=== PATIENT | female | born 1940 | race Caucasian/White ===

== ENCOUNTER 2019-01-03 08:04 | Emergency (ER) | payer OTHER ==
[~2019-01-03] VITALS: Ht 165.1 cm; Wt 59.0 kg
[~2019-01-03 08:04] MED LIST: ACTOS15 MG PO; B-121000 MC2 PO; BONIVA150 MG PO; CARDIZEM CD120 MG PO; CORDARONE200 MG PO; COREG6.25 MG PO; GLUCOPHAGE500 MG PO; GLYBURIDE 5 MG T5 M1 PO; INDAPAMIDE1.25 MG PO; IRBESARTAN300 MG PO; IRON SUPPLEMEN325 MG PO; JANUVIA25 MG PO; LESCOL XL80 MG PO; NORVASC10 MG PO; PLAVIX 75 MG TA75 M1 PO; SPIRONOLACTONE25 MG PO; VITAMIN D5000 UNIT PO
[2019-01-03] MEDS ORDERED: GLYBURIDE 5 MG T5 M1 PO (08:07)
[2019-01-03] MEDS ORDERED: JANUVIA100 MG PO (08:08)
[2019-01-03] MEDS ORDERED: BENTYL 20 MG TA20 M1 PO (08:09)
[2019-01-03] MEDS ORDERED: IRON325 PO (08:10)
[2019-01-03] MEDS ORDERED: TYLENOL EXTRA500 MG PO (08:11)
[2019-01-03] MEDS ORDERED: TRIAMCINOLONE A80 G2 TOP (08:11)
[2019-01-03] MEDS ORDERED: SPIRONOLACTONE25 M1 PO (08:12)
[2019-01-03] MEDS ORDERED: INDAPAMIDE2.5 MG PO (08:12)
[2019-01-03] MEDS ORDERED: [UNRECOGNIZED DRUG - OTHER] PO (08:14)
[2019-01-03] MEDS ORDERED: VITAMIN B-12500 MCG PO (08:15)
[2019-01-03 08:50] LABS: ABSOLUTE EOSINOPHILS 0.2 thou/uL (0.0-0.7); ABSOLUTE LYMPHOCYTES 1.7 thou/uL (0.8-5.3); ABSOLUTE MONOCYTES 0.6 thou/uL (0.0-1.2); BASOPHILS 0.4 %; EOSINOPHILS 1.7 %; HEMATOCRIT 37.4 % (37.0-47.0); HEMOGLOBIN 12.8 gm/dL (12.0-15.0); LYMPHOCYTES 16.4 %; MCH 28.5 pg (26.0-34.0); MCHC 34.3 g/dL (28.0-37.0); MCV 82.9 fL (80.0-100.0); MONOCYTES 5.4 %; NUCLEATED RBCS 0 /100WBC; PLATELET COUNT* 236 thou/uL (150-400); POLYS 76.1 %; RBC 4.51 mil/uL (4.20-5.00); RDW-CV 15.1 % (10.5-14.5); WBC 10.6 thou/uL (4.0-11.0)
[2019-01-03 08:58] LABS: CALCIUM 9.3 mg/dL (8.5-10.1); CREATININE 1.3 mg/dL (0.6-1.3); POTASSIUM 4.4 mmol/L (3.5-5.1)
[2019-01-03 09:02] LABS: ALBUMIN 3.8 g/dL (3.4-5.0); TOTAL BILIRUBIN 0.3 mg/dL (<0.1-1.0); TOTAL PROTEIN 7.9 g/dL (6.4-8.2)
[2019-01-03 09:46] VITALS: BP 149/63
== END 2019-01-03 09:47 | disposition home or self-care (01) ==
LOC: M.ERS 08:04
PROVIDERS: Personal Emergency Response Attendant
DX: E11.649 Type 2 diabetes mellitus with hypoglycemia without coma (principal); Z90.710 Acquired absence of both cervix and uterus; Z86.73 Personal history of transient ischemic attack (TIA), and cerebral infarction without residual deficits; Z85.828 Personal history of other malignant neoplasm of skin

== ENCOUNTER 2019-05-18 11:50 | Inpatient (IN) | payer OTHER ==
[~2019-05-18] VITALS: Ht 167.6 cm; Wt 60.8 kg
[~2019-05-18 11:50] MED LIST changes: +BENTYL 20 MG TA20 M1 PO; +INDAPAMIDE2.5 MG PO; +JANUVIA100 MG PO; +SPIRONOLACTONE25 M1 PO; +TRIAMCINOLONE A80 G2 TOP; +[UNRECOGNIZED DRUG - OTHER] PO
[2019-05-18 11:51] VITALS: BP 158/41
[2019-05-18 12:12] LABS: ABSOLUTE BASOPHILS 0.1 thou/uL (0.0-0.2); ABSOLUTE EOSINOPHILS 0.2 thou/uL (0.0-0.7); ABSOLUTE LYMPHOCYTES 1.7 thou/uL (0.8-5.3); ABSOLUTE MONOCYTES 0.8 thou/uL (0.0-1.2); ABSOLUTE NEUTROPHILS 13.1 thou/uL (1.6-8.1); BASOPHILS 0.4 %; EOSINOPHILS 1.1 %; HEMATOCRIT 36.4 % (37.0-47.0); HEMOGLOBIN 12.4 gm/dL (12.0-15.0); LYMPHOCYTES 10.8 %; MCH 27.7 pg (26.0-34.0); MCHC 34.1 g/dL (28.0-37.0); MCV 81.2 fL (80.0-100.0); MONOCYTES 4.9 %; MPV 8.2 fl. (7.2-11.1); NUCLEATED RBCS 0 /100WBC; PLATELET COUNT* 243 thou/uL (150-400); POLYS 82.8 %; RBC 4.49 mil/uL (4.20-5.00); WBC 15.8 thou/uL (4.0-11.0)
[2019-05-18 12:22] LABS: PROTIME 10.7 Seconds (9.20-11.50)
[2019-05-18 12:26] LABS: CALCIUM 9.3 mg/dL (8.5-10.1); CREATININE 1.5 mg/dL (0.6-1.3); POTASSIUM 4.1 mmol/L (3.5-5.1)
[2019-05-18 12:31] LABS: ALBUMIN 3.5 g/dL (3.4-5.0); TOTAL BILIRUBIN 0.5 mg/dL (<0.1-1.0); TOTAL PROTEIN 7.8 g/dL (6.4-8.2)
--- NOTE | 2019-05-18 15:19 | EKG ---
[place] [address] ELECTROCARDIOGRAM REPORT Name: ODELLIRMA Room: [place] [address] ADM IN .R.#: [id number] Admission: 05/18/19 Attend Phys: Sherice Sheridan Discharge: Date of : 36 Report #: [id number] THIS REPORT FOR: //name// [facility] ED Test Date: 2019-05-18 Test Time: 12:26:20 Pat Name: IRMA ODELL Department: Room: [facility] Gender: F Gold Assayer: VICTORIANO : 1940 Requested By: Matt Bhagat Order Number: [id number] MD: Jese Bautista Measurements Intervals [place] Rate: 72 P: 32 CA: 159 QRS: -2 QRSD: 105 T: 28 QT: 424 QTc: 465 Interpretive Statements Sinus rhythm Low voltage, precordial leads artifact noted Compared to ECG 12/19/2014 16:00:25 Low QRS voltage now present ST (T wave) deviation now present Electronically Signed On 05-18-2019 15:18:59 CDT by Jese Bautista [email or web address] <ELECTRONICALLY SIGNED> By: Jese Bautista MD, FACC 05/18/19 1518 1226 1226 Jese Bautista MD, FAC /EPI
[2019-05-18 15:21] LABS: URINE BILIRUBIN NEGATIVE (Negative); URINE BLOOD TRACE (Negative); URINE CLARITY CLEAR; URINE COLOR YELLOW; URINE GLUCOSE-RANDOM 3+ (Negative); URINE KETONES NEGATIVE (Negative); URINE NITRITE-REFLEX NEGATIVE (Negative); URINE PROTEIN TRACE (Negative); URINE UROBILINOGEN 0.2 E.U./dl (0.2-1.0)
[2019-05-18 15:22] LABS: URINE LEUKOCYTES-REFLEX 2+ (Negative)
[2019-05-18 15:53] LABS: HYALINE CASTS >10 Many /LPF (None Seen); MUCUS None Seen strn/LPF (None Seen); SQUAMOUS >10 Many /LPF (0-3)
[2019-05-18 15:54] LABS: BACTERIA-REFLEX 1-9 Few /HPF (None Seen); CRYSTALS None Seen /LPF (None Seen); URINE RBC 0-2 Rare /HPF (0-2); URINE WBC-REFLEX >25 Many /HPF (0-5)
[2019-05-18 18:38] VITALS: BP 129/52
[2019-05-18 18:53] VITALS: BP 157/91
[2019-05-18 20:04] VITALS: BP 147/54
[2019-05-19] VITALS (7 sets, daily range): BP systolic 143–163; BP diastolic 55–71
--- NOTE | 2019-05-19 05:11 | NUR ---
PT IS ABLE TO COMMUNICATE HER NEEDS TO STAFF EFFECTIVELY. SHE HAS DENIED THE NEED FOR PAIN MEDICATION UP TO THIS TIME. NEUROLOGY AND REHAB CONSULTED. PT REPORTS HAVING A RECENT FALL WHILE AT HOME; BED ALARM ON.
[2019-05-19 06:08] LABS: ALKALINE PHOSPHATASE 89 U/L (46-116); ANION GAP 11 mmol/L (7-16); BUN 17 mg/dL (7-18); CALCIUM 8.6 mg/dL (8.5-10.1); CHLORIDE 110 mmol/L (98-107); CHOLESTEROL 130 mg/dL (<200); CO2 23 mmol/L (21-32); CREATININE 1.1 mg/dL (0.6-1.3); GLUCOSE 153 mg/dL (70-99); HDL CHOLESTEROL 41 mg/dL (>40); LDL CHOLESTEROL 77 mg/dL (<100); POTASSIUM 3.7 mmol/L (3.5-5.1); SERUM ASSESSMENT Clear; SGOT 13 U/L (15-37); SGPT 18 U/L (30-65); SODIUM 144 mmol/L (136-145); TC:HDL 3.2 Ratio (Not establshd); TOTAL BILIRUBIN 0.3 mg/dL (<0.1-1.0); TOTAL PROTEIN 6.5 g/dL (6.4-8.2); TRIGLYCERIDE 64 mg/dL (<150); VLDL 13 mg/dL (<40)
--- NOTE | 2019-05-19 07:15 | NUR ---
CHANGE OF SHIFT, BEDSIDE REPORT GIVEN PATIENT SEEN AT BEDSIDE, IN BED ASLEEP ASSUMED PATIENT CARE
--- NOTE | 2019-05-19 14:53 | 2DMMODE ---
[place] [address] 2 D/M-MODE ECHOCARDIOGRAM Name: IRMA ODELL Tory Room: [address] IN [facility]#: [id number] Admission: 05/18/19 Attend Phys: Sherice gomez Sa Discharge: Date of : 36 Date of Service: 05/19/19 1453 Report #: [id number] THIS REPORT FOR: //name// APPROVED REPORT Study performed: 05/19/2019 09:38:25 EXAM: Comprehensive 2D, Doppler, and color-flow Echocardiogram Patient Location: In-Patient Room #: [facility] Status: routine BSA: 1.68 HR: 79 bpm BP: 157/56 mmHg Rhythm: NSR Other Information Study Quality: Good Indications CVA/TIA Echo Enhancing Agent Indication: Rule out Shunt Agent(s) / Amount(s) Used: Agitated Saline 10 cc 2D Dimensions IVSd: 10.66 (7-11mm) LVOT Diam: 18.26 (18-24mm) LVDd: 35.36 mm PWd: 7.85 (7-11mm) Ascending Ao: 27.83 (22-36mm) LVDs: 14.84 (25-40mm) Aortic Root: 26.83 mm Volumes Left Atrial Volume (Systole) LA ESV Index: 27.60 mL/m2 Aortic Valve AoV Peak Wong.: 1.53 m/s AO Peak Gr.: 9.41 mmHg LVOT Max P.90 mmHg AO Mean Gr.: 5.48 mmHg LVOT Mean P.85 mmHg LVOT Max V: 0.99 m/s AO V2 VTI: 35.88 cm LVOT Mean V: 0.62 m/s DANIEL (VTI): 1.80 cm2 LVOT V1 VTI: 24.71 [place] [address] 2 D/M-MODE ECHOCARDIOGRAM Name: IRMA ODELL Room: [address] M.R.#: [id number] Admission: 05/18/19 Attend Phys: Sherice gomez Sa Discharge: Date of : 36 Date of Service: 05/19/19 1453 Report #: [id number] Mitral Valve E/A Ratio: 0.82 MV Decel. Time: 280.25 ms MV E Max Wong.: 1.11 m/s MV PHT: 81.27 ms MVA (PHT): 2.71 cm2 TDI E/Lateral E': 15.86 E/Medial E': 7.93 Medial E' Wong.: 0.14 m/s Lateral E' Wong.: 0.07 m/s Pulmonary Valve PV Peak Wong.: 0.94 m/s PV Peak Gr.: 3.57 mmHg Left Ventricle The left ventricle is normal size. There is normal LV segmental wall motion. There is normal left ventricular wall thickness. Left ventricular systolic function is normal. The left ventricular ejection fraction is within the normal range. LVEF is 65-70%. Grade I - abnormal relaxation pattern. Right Ventricle The right ventricle is normal size. The right ventricular systolic function is normal. Atria The left atrium size is normal. Interatrial septum is intact without evidence of ASD or PFO. The right atrium size is normal. Aortic Valve Mild aortic valve sclerosis. No aortic regurgitation is present. There is no aortic valvular stenosis. Mitral Valve The mitral valve is normal in structure. Trace mitral regurgitation. No evidence of mitral valve stenosis. Tricuspid Valve The tricuspid valve is normal in structure. Trace tricuspid regurgitation. Pulmonic Valve The pulmonary valve is normal in structure. There is no [place]mon[place] [address] 2 D/M-MODE ECHOCARDIOGRAM Name: IRMA ODELL Tory Room: [address] IN [facility]#: [id number] Admission: 05/18/19 Attend Phys: Sherice gomez Sa Discharge: Date of : 36 Date of Service: 05/19/19 1453 Report #: [id number] Great Vessels The aortic root is normal in size. IVC is normal in size and collapses >50% with inspiration. Pericardium There is no pericardial effusion. <Conclusion> LVEF is 65-70%. Interatrial septum is intact without evidence of ASD or PFO. <ELECTRONICALLY SIGNED> By: eJse Bautista MD, FACC 05/19/19 1453 145 145 Jese Bautista MD, FACC /INF
--- NOTE | 2019-05-19 15:38 | NUR ---
Pt is A&O. Resides at home with her . Active and independent. No DME. No hx of HH or SNF. Goal is home at ga. Following.
[2019-05-20 02:06] LABS: GLYCOHEMOGLOBIN (HGB A1C) 8.9 % (4.8-5.6)
[2019-05-20 03:45] VITALS: BP 157/62
[2019-05-20 05:16] LABS: ALBUMIN 2.9 g/dL (3.4-5.0); CALCIUM 8.4 mg/dL (8.5-10.1); CREATININE 1.1 mg/dL (0.6-1.3); POTASSIUM 3.8 mmol/L (3.5-5.1); TOTAL BILIRUBIN 0.4 mg/dL (<0.1-1.0); TOTAL PROTEIN 6.7 g/dL (6.4-8.2)
[2019-05-20 05:29] LABS: HEMATOCRIT 31.7 % (37.0-47.0); HEMOGLOBIN 10.9 gm/dL (12.0-15.0); MCH 27.8 pg (26.0-34.0); MCHC 34.3 g/dL (28.0-37.0); MCV 81.1 fL (80.0-100.0); MPV 8.4 fl. (7.2-11.1); RBC 3.91 mil/uL (4.20-5.00); RDW-CV 15.2 % (10.5-14.5); WBC 10.4 thou/uL (4.0-11.0)
[2019-05-20 08:00] VITALS: BP 166/68
--- NOTE | 2019-05-20 09:37 | NUR ---
Glove Cuffer: Met with patient, sitting in chair, no concerns at this time. Has stroke education completed.
[2019-05-20 11:52] VITALS: BP 157/57
[2019-05-20 16:40] VITALS: BP 160/70
--- NOTE | 2019-05-20 18:20 | NUR ---
PT VSS, SR ON TELE, A&OX4, STAND BY ASSIST, HOURLY ROUNDING PERFORMED, POSSESSIONS AND CALL LIGHT WITHIN REACH. PT RELAXED COMFORTABLY MOST OF THE DAY, EXPECTS D/C TOMORROW. ACCUCHECKS MEGHNA.
--- NOTE | 2019-05-20 23:40 | NUR ---
PT IS A+OX4. DENIES DIZZYNESS OR ANY STROKE S+S. UP STAMDBY TO THE BATHROOM-STEADY. PT HAS RED IRRIATION IN RIGHT GROIN- WAS WEARING DEPENDS AND UNDERWARE. APPLIED NYSTATIN POWDER TO RIGHT GROIN (REDNESS BUT NOT OPEN) AND ENCOURAGED PT TO REMOVE UNDERGARMENTS AND AIR OUT BLANE AREA. PT DENIES PAIN OTHER THAN IRRITATION IN RIGHT GROIN. TRACING SR ON MONITOR. CALL LIGHT IN REACH. HOURLY ROUNDING FOR SAFETY.
[2019-05-21 00:12] VITALS: BP 148/63
[2019-05-21 04:30] VITALS: BP 144/50
[2019-05-21 08:15] VITALS: BP 141/57
--- NOTE | 2019-05-21 08:25 | NUR ---
ASSUMED PT. CARE AND RECEIVED REPORT AT 0730. PT A/OX4, VSS, MONITOR ON TRACING SR. PT. DENIES CURRENT PAIN/SOB. ON RA @ 97%. FULL ASSESSMENT COMPLETED, REFER TO CHARTING. PT. UP TO CHAIR WITH ASSIST X1, CALL LIGHT IN REACH, FALL PRECAUTIONS IN PLACE. WILL CONTINUE WITH PLAN OF CARE.
[2019-05-21] MEDS ORDERED: NYAMYC15 GM TOP (10:42)
[2019-05-21 11:31] VITALS: BP 152/60
[2019-05-21] MEDS ORDERED: IRON325 PO (11:56)
[2019-05-21] MEDS ORDERED: TYLENOL EXTRA500 MG PO (11:56)
[2019-05-21] MEDS ORDERED: VITAMIN B-12500 MCG PO (11:56)
[2019-05-21 12:36] VITALS: BP 152/60
--- NOTE | 2019-05-21 12:46 | NUR ---
reyes sent referral packet to [facility] [phone]. ashanti govea/Char.
[2019-05-21 13:19] VITALS: BP 152/60
--- NOTE | 2019-05-21 14:24 | CON ---
[address] [address] CONSULTATION Name: IRMA ODELL Tory Room: [address] IN M.R.#: [id number] Admission: 05/18/19 Attend Phys: Sherice Sheridan Discharge: 05/21/19 Date of : 36 Report #: [id number] THIS REPORT FOR: //name// CC: Daisy Benson DATE OF SERVICE: 05/19/2019 HISTORY OF PRESENT ILLNESS: This is an 79-year-old female patient who was evaluated for some unstructured history. The noticed that she was confused yesterday. She was not talking properly and apparently she had this episode before. I talked to the emergency room doctor who took care of this patient and subsequently I talked to Dr. Benson, the hospitalist. She also had loss of consciousness for a short duration of time. She was saying yes or no when she came in. 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 I do not know what workup she had at that time. REVIEW OF SYSTEMS: Indicate the possibility of TIA. This patient had a skin cancer removed. She does have a history of diabetes as I understand. I do not know what the blood sugar was when this happened. A 14-point review of system was carried out and this was the relevant 14-point review of system. PAST MEDICAL HISTORY: Positive for TIA. FAMILY HISTORY: Negative for early age stroke. SOCIAL HISTORY: She denies the use of alcohol. PHYSICAL EXAMINATION: Indicate she is alert. She is responsive. She can follow simple commands. Her speech looks back to normal, but she does have some facial weakness on the right side. Otherwise, neuromuscular examination is symmetrical. Heart looks unremarkable. No respiratory difficulty or rhonchi. Blood pressure is 156/70, respirations 17, pulse is 97, temperature is 97.2. LABORATORY DATA: White count for some reason is 15.8. GFR is 48. I reviewed the patient's MRI and she does have finding consistent with left frontal lobe stroke. 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 One of the note I saw in the chart indicates that she has paroxysmal atrial fibrillation. The patient does not provide any history and we have to talk to the family. If she has a documented atrial fibrillation, then I think main thing she needs is anticoagulation, but if she does not have documented atrial fibrillation. She needs extensive workup to rule out any cardiac cause for embolization including atrial fibrillation. I will [place] [address] CONSULTATION Name: IRMA ODELL Tory Room: [address] M.R.#: [id number] Admission: 05/18/19 Attend Phys: Sherice Sheridan Discharge: 05/21/19 Date of : 36 Report #: [id number] Time spent is about 50 minutes, majority of them counseling and coordinating. <ELECTRONICALLY SIGNED> By: Daniel Torres MD 05/21/19 1424 1316 1411Paristeo Torres MD /nt
== END 2019-05-21 13:22 | disposition home health service (06) | DRG 64 ==
LOC: M.ERS 11:50 → M.TBA-ER 12:47 → M.2W 12:47
PROVIDERS: Emergency Medicine; ADMIT Family Medicine
DX: I63.9 Cerebral infarction, unspecified (principal); R65.11 Systemic inflammatory response syndrome (SIRS) of non-infectious origin with acute organ dysfunction; N17.9 Acute kidney failure, unspecified; N18.4 Chronic kidney disease, stage 4 (severe); B37.89 Other sites of candidiasis; D68.69 Other thrombophilia; I48.0 Paroxysmal atrial fibrillation; E11.22 Type 2 diabetes mellitus with diabetic chronic kidney disease; E78.5 Hyperlipidemia, unspecified; I12.9 Hypertensive chronic kidney disease with stage 1 through stage 4 chronic kidney disease, or unspecified chronic kidney disease; L30.9 Dermatitis, unspecified; Z79.899 Other long term (current) drug therapy; Z90.710 Acquired absence of both cervix and uterus; Z79.84 Long term (current) use of oral hypoglycemic drugs; Z85.828 Personal history of other malignant neoplasm of skin; Z79.01 Long term (current) use of anticoagulants

== ENCOUNTER 2020-12-26 15:46 | Emergency (ER) | payer OTHER ==
[~2020-12-26] VITALS: Ht 167.6 cm; Wt 55.8 kg
[~2020-12-26 15:46] MED LIST changes: +IRON325 PO; +NYAMYC15 GM TOP; +TYLENOL EXTRA500 MG PO; +VITAMIN B-12500 MCG PO
[2020-12-26 16:41] LABS: HEMATOCRIT 35.2 % (37.0-47.0); HEMOGLOBIN 12.1 gm/dL (12.0-15.0); MCH 27.8 pg (26.0-34.0); MCHC 34.5 g/dL (28.0-37.0); MCV 80.7 fL (80.0-100.0); NUCLEATED RBCS 0 /100WBC; PLATELET COUNT* 233 thou/uL (150-400); RBC 4.36 mil/uL (4.20-5.00); RDW-CV 14.7 % (10.5-14.5); WBC 13.4 thou/uL (4.0-11.0)
[2020-12-26 16:51] LABS: CALCIUM 9.4 mg/dL (8.5-10.1); CREATININE 1.3 mg/dL (0.6-1.3); POTASSIUM 4.4 mmol/L (3.5-5.1)
[2020-12-26 16:52] LABS: PROTIME 10.9 Seconds (9.20-11.50)
[2020-12-26 16:55] LABS: TOTAL BILIRUBIN 0.6 mg/dL (<0.1-1.0); TOTAL PROTEIN 8.2 g/dL (6.4-8.2)
[2020-12-26 17:16] LABS: ABSOLUTE LYMPHOCYTES 0.9 thou/uL (0.8-5.3); ABSOLUTE MONOCYTES 0.8 thou/uL (0.0-1.2); ABSOLUTE NEUTROPHILS 11.7 thou/uL (1.6-8.1); PLATELET ESTIMATE ADEQUATE
[2020-12-26 18:09] LABS: URINE BILIRUBIN NEGATIVE (Negative); URINE BLOOD 1+ (Negative); URINE CLARITY CLEAR; URINE COLOR YELLOW; URINE GLUCOSE-RANDOM 2+ (Negative); URINE KETONES 1+ (Negative); URINE LEUKOCYTES-REFLEX NEGATIVE (Negative); URINE NITRITE-REFLEX NEGATIVE (Negative); URINE PROTEIN 1+ (Negative); URINE UROBILINOGEN 0.2 E.U./dl (0.2-1.0)
[2020-12-26 18:21] LABS: CASTS None Seen /LPF (None Seen); CRYSTALS None Seen /LPF (None Seen); MUCUS 0-3 Light strn/LPF (None Seen); SQUAMOUS 0-3 Few /LPF (0-3); URINE RBC 3-10 Few /HPF (0-2); URINE WBC-REFLEX 6-15 Few /HPF (0-5); WBC CLUMPS Few (None Seen)
[2020-12-26] MEDS ORDERED: HYDROCODON-ACE1 EAC7 PO (18:55)
[2020-12-26] MEDS ORDERED: MACROBID 100 M100 M1 PO (18:55)
[2020-12-26 19:39] VITALS: BP 146/64
--- NOTE | 2020-12-27 14:13 | EKG ---
[place] [address] ELECTROCARDIOGRAM REPORT Name: IRMA ODELL Room: [facility]#: [id number] Admission: 12/26/20 Attend Phys: Discharge: 12/26/20 Date of : 36 Date of Service: 12/26/20 1627 Report #: [id number] THIS REPORT FOR: //name// [facility] ED Test Date: 2020-12-26 Test Time: 16:27:59 Pat Name: IRMA ODELL Department: Room: Gender: Tax Investigator: : 1940 Requested By: Michael Morales Order Number: [id number] MD: Mario Irby Measurements Intervals [place] Rate: 82 P: 47 MI: 170 QRS: -10 QRSD: 94 T: 52 QT: 374 QTc: 437 Interpretive Statements Sinus rhythm Low voltage, precordial leads Consider anterior infarct Compared to ECG 05/18/2019 12:26:20 Myocardial infarct finding now present Electronically Signed On 12-27-2020 14:13:43 CDT by Mario Irby [email or web address] <ELECTRONICALLY SIGNED> By: Mario Irby MD, [facility] 12/27/20 1413 1627 1627 Mario Irby MD, [facility] /EPI
== END 2020-12-26 19:40 | disposition home or self-care (01) ==
LOC: M.ERS 15:46
PROVIDERS: Nurse Practitioner Psychiatric/Mental Health
DX: S42.032A Displaced fracture of lateral end of left clavicle, initial encounter for closed fracture (principal); S40.811A Abrasion of right upper arm, initial encounter; N39.0 Urinary tract infection, site not specified; E11.9 Type 2 diabetes mellitus without complications; Z86.73 Personal history of transient ischemic attack (TIA), and cerebral infarction without residual deficits; Z90.711 Acquired absence of uterus with remaining cervical stump; Z79.899 Other long term (current) drug therapy; W10.8XXA Fall (on) (from) other stairs and steps, initial encounter; Y93.89 Activity, other specified; Y92.098 Other place in other non-institutional residence as the place of occurrence of the external cause; Y99.8 Other external cause status

== ENCOUNTER → 2021-01-11 | Outpatient (CLI) | payer OTHER ==
[~2021-01-11] MED LIST changes: +HYDROCODON-ACE1 EAC7 PO; +MACROBID 100 M100 M1 PO
== END ==
LOC: M.RAD 09:59
PROVIDERS: ATTEND Orthopaedic Surgery
DX: S42.002A Fracture of unspecified part of left clavicle, initial encounter for closed fracture (principal); X58.XXXA Exposure to other specified factors, initial encounter; Y93.89 Activity, other specified; Y92.89 Other specified places as the place of occurrence of the external cause; Y99.8 Other external cause status